=== PATIENT | male | born 1970 | race Caucasian/White ===

== ENCOUNTER 2022-03-02 05:52 | Emergency (ER) | payer SELFPAY ==
[2022-03-02] VITALS (7 sets, daily range): BP systolic 121–155; BP diastolic 78–93
[~2022-03-02] VITALS: Ht 180.3 cm; Wt 104.0 kg
[~2022-03-02 05:52] MED LIST: ASPIRIN81 MG PO; FLEXERIL PO; METFORMIN500 MG PO; NO HOME MEDS; ULTRAM50 M1 PO; UNKNOWN BP MED
[2022-03-02] MEDS ORDERED: LOSARTAN POTASS50 MG PO (06:42)
[2022-03-02 07:25] LABS: HEMATOCRIT 46.7 % (39.0-50.0); HEMOGLOBIN 16.8 g/dl (14.0-18.0); IMMATURE GRANULOCYTES 0.2 % (0.0-5.0); MEAN CELL VOLUME 87.5 fL CALC (80.0-100.0); MEAN CORPUSCULAR HGB 31.5 pG CALC (26.0-32.0); NEUT# 6.12 thou/uL (1.82-7.42); RED BLOOD COUNT 5.34 mill/uL (4.70-6.10); RED CELL DISTRI WIDTH 11.6 % (11.5-15.5)
[2022-03-02 07:32] LABS: ALBUMIN 4.8 g/dL (3.2-5.0); CREATININE 1.5 mg/dL (0.7-1.3); MAGNESIUM 2.3 mg/dL (1.6-2.3); POTASSIUM 3.4 mmol/l (3.5-5.1)
[2022-03-02 07:33] LABS: BILIRUBIN, TOTAL 1.4 mg/dL (0.0-1.4)
[2022-03-02 08:10] LABS: URINE BILIRUBIN - DIPSTICK NEGATIVE (NEGATIVE); URINE BLOOD DIPSTICK TRACE-INTACT (NEGATIVE); URINE COLOR YELLOW; URINE GLUCOSE - DIPSTICK NEGATIVE (NEGATIVE); URINE KETONE NEGATIVE (NEGATIVE); URINE LEUK ESTERASE NEGATIVE (NEGATIVE); URINE NITRITE - DIPSTICK NEGATIVE (Negative); URINE PROTEIN - DIPSTICK NEGATIVE (NEG-TRACE); URINE UROBILINOGEN - DIPSTICK 0.2 E.U./dL (0.2)
[2022-03-02] MEDS ORDERED: PROMETHAZINE HY25 M1 PO ×2 (08:45→08:47)
== END 2022-03-02 09:07 | disposition home or self-care (01) | DRG 392 ==
LOC: ED 05:52
PROVIDERS: Family Medicine
DX: R11.10 Vomiting, unspecified (principal); I10 Essential (primary) hypertension; E11.9 Type 2 diabetes mellitus without complications; Z79.84 Long term (current) use of oral hypoglycemic drugs; Z20.822 Contact with and (suspected) exposure to COVID-19